=== PATIENT | female | born 1950 | race Caucasian/White ===

== ENCOUNTER → 2018-10-03 | Outpatient (CLI) | payer MEDICARE, OTHER ==
[2018-10-03 12:59] LABS: ABSOLUTE EOSINOPHILS # (AUTO) 0.1 10^3/uL (0.0-0.6); ABSOLUTE LYMPHOCYTES (AUTO) 3.1 10^3/uL (0.5-4.7); ABSOLUTE MONOCYTES (AUTO) 0.2 10^3/uL (0.1-1.4); ABSOLUTE NEUT (AUTO) 3.5 10^3/uL (1.7-8.2); BASOPHILS % (AUTO) 0.1 % (0-2); MEAN CORPUSCULAR HEMOGLOBIN 30.4 pg (27.0-33.4); MEAN CORPUSCULAR HGB CONC 34.1 g/dL (32.0-36.0); MEAN CORPUSCULAR VOLUME 89 fl (80-97); MONOCYTES % (AUTO) 3.3 % (3-13); PLATELET COUNT 230 10^3/uL (150-450); RED CELL DISTRIBUTION WIDTH 14.1 % (11.5-14.0); SEGMENTED NEUTROPHILS % (AUTO) 50.6 % (42-78); TOTAL CELLS COUNTED % (AUTO) 100 %; WHITE BLOOD COUNT 6.9 10^3/uL (4.0-10.5)
[2018-10-03 13:05] LABS: ALANINE AMINOTRANSFERASE 31 U/L (9-52); ALBUMIN 4.6 g/dL (3.5-5.0); ALKALINE PHOSPHATASE 60 U/L (38-126); ANION GAP 6 (5-19); ASPARTATE AMINO TRANSFERASE 20 U/L (14-36); BILIRUBIN,DIRECT 0.2 mg/dL (0.0-0.4); BILIRUBIN,TOTAL 0.4 mg/dL (0.2-1.3); BLOOD UREA NITROGEN 14 mg/dL (7-20); CALCIUM 9.7 mg/dL (8.4-10.2); CARBON DIOXIDE 27 mmol/L (22-30); CHLORIDE 108 mmol/L (98-107); GLUCOSE 89 mg/dL (75-110); POTASSIUM 4.5 mmol/L (3.6-5.0); TOTAL PROTEIN 6.5 g/dL (6.3-8.2)
[2018-10-03 13:22] LABS: FREE T3 3.08 pg/mL (2.77-5.27); FREE T4 (FREE THYROXINE) 1.27 ng/dL (0.78-2.19)
[2018-10-03 13:35] LABS: THYROID STIMULATING HORMONE 0.12 uIU/mL (0.47-4.68)
[2018-10-06 10:56] LABS: CHOLESTEROL 177.04 mg/dL (0-200); TRIGLYCERIDES 152 mg/dL (<150)
[2018-10-06 11:11] LABS: DIRECT LDL 76 mg/dL (<100)
[2018-10-06 11:16] LABS: VLDL CHOLESTEROL 30.4 mg/dL (10-31)
== END ==
LOC: OD 11:38
PROVIDERS: ATTEND Family Medicine
DX: E03.9 Hypothyroidism, unspecified (principal); R73.01 Impaired fasting glucose; Z79.899 Other long term (current) drug therapy; E55.9 Vitamin D deficiency, unspecified; E53.9 Vitamin B deficiency, unspecified; Z13.220 Encounter for screening for lipoid disorders; Z78.0 Asymptomatic menopausal state
CPT/HCPCS: 36415; 80053; 80061; 82306; 82607; 82670; 83001; 83002; 83036; 84439; 84443; 84481; 85025

== ENCOUNTER 2018-10-24 13:20 | Day surgery (SDC) | payer MEDICARE, OTHER ==
[~2018-10-24 13:20] MED LIST: BACITRACIN INJ 50,000 UNIT VIAL ONE; LIDOCAINE 1% INJ-PF (10 MG/ML) 30 ML SDV ONE
[2018-10-24] MEDS ORDERED: PROPOFOL INJ 200 MG/20 ML VIAL IV ONE (13:48)
[2018-10-24] MEDS ORDERED: ACETAMINOPHEN 0 MG/0 ML RTUPB IV ONE (13:48)
[2018-10-24] MEDS ORDERED: MIDAZOLAM 2 MG/2 ML INJ ONE (13:48)
[2018-10-24] MEDS ORDERED: FENTANYL CITRATE INJ/PF 100 MCG/2 ML AMPUL ONE (13:48)
[2018-10-24] MEDS ORDERED: ONDANSETRON HCL INJ/PF 4 MG/2 ML SDV ONE (13:48)
[2018-10-24] MEDS ORDERED: CLINDAMYCIN PHOSPHATE INJ 300 MG/2 ML SDV ONE (14:42)
[2018-10-24 14:50] LABS: APPEARANCE,URINE CLEAR; BILIRUBIN,URINE NEGATIVE (NEGATIVE); COLOR,URINE YELLOW; GLUCOSE, URINE NEGATIVE (NEGATIVE); KETONES,URINE NEGATIVE (NEGATIVE); LEUKOCYTE ESTERASE,URINE TRACE (NEGATIVE); NITRITE,URINE NEGATIVE (NEGATIVE); PROTEIN,URINE NEGATIVE (NEGATIVE); URINE SPECIFIC GRAVITY 1.019; UROBILINOGEN,URINE NEGATIVE mg/dL (<2.0)
[2018-10-24] MEDS ORDERED: OXYCODONE-ACETAMINOPHEN 5-325 MG TABLET PO PRN ×2 (14:58)
[2018-10-24] MEDS ORDERED: FENTANYL CITRATE INJ/PF 100 MCG/2 ML AMPUL IV PRN ×3 (14:58)
[2018-10-24] MEDS ORDERED: MORPHINE SULFATE 10 MG/ML INJ IV PRN (14:58)
[2018-10-24] MEDS ORDERED: MEPERIDINE HCL/PF INJ 25 MG/1 ML DISP.SYRIN IV PRN (14:58)
[2018-10-24] MEDS ORDERED: PROMETHAZINE HCL INJ 25 MG/1 ML VIAL IV PRN ×2 (14:58)
[2018-10-24] MEDS ORDERED: DIPHENHYDRAMINE HCL 50 MG/ML VIAL IV PRN (14:58)
[2018-10-24] MEDS ORDERED: ONDANSETRON HCL INJ/PF 4 MG/2 ML SDV IV PRN ×2 (14:58→15:10)
[2018-10-24] MEDS ORDERED: HYDROMORPHONE HCL INJ/PF 2 MG/ML AMPULE IV PRN (15:10)
--- NOTE | 2018-10-24 15:12 | Discharge Summary ---
Discharge Summary (SDC) - Discharge Final Diagnosis: Left hand abscess Date of Surgery: 10/24/18 Discharge Date: 10/24/18 Condition: Good Treatment or Instructions: Schedule Follow Up w/ Dr. Kendall Duque @ [facility] for [facility] to be seen in 7 days or as scheduled [place]: [place]: [place]: Begin daily dressing changes postop day #2 keep incision covered and dry. Remove drain on postop day #2 then begin wet-to-dry dressings. Ice and elevate May begin finger range of motion attempting to make full fist. Stool softener of choice when on pain medication. USE OF BDWP-[id number]-VZNPEKO IBUPROFEN: Ibuprofen (Advil, Nuprin, Medipren, Motrin IB) is a medication for fever and pain control. In addition, it has anti- inflammatory effects which may be beneficial, especially in the treatment of injuries. It's best to take ibuprofen with food. Persons with ulcer disease or allergy to aspirin should notify their physician of this before taking ibuprofen. Ibuprofen can be given every four to six hours, for a total of four doses daily. Age Pain or fever dose Antiinflammatory dose 6-8 yr 200 mg (1 tab) 200 mg (1 tab) 9-11 yr 200 mg (1 tab) 200-400 mg (1-2 tab) 11-14 yr 200-400 mg (1-2 tab) 400 mg (2 tab) 15-adult 400 mg (2 tab) 600 mg (3 tab) ORAL NARCOTIC MEDICATION: You have been given a prescription for pain control. This medication is a narcotic. It's best taken with food, as nausea can result if taken on an empty stomach. Don't operate machinery or drive within six hours of taking this medication. Do not combine this medicine with alcohol, or with any medication which can cause sedation (such as cold tablets or sleeping pills) unless you get permission from the physician. Narcotics tend to cause constipation. If possible, drink plenty of fluids and eat a diet high in fiber and fruits. Please be aware that prescription narcotics also have the potential for abuse. People become addicted to these medications because of the general sense of wellbeing that they induce. This feeling along with a significant reduction in tension, anxiety, and aggression provides a stimulating seductive quality to these drugs. Once your pain is under control, we encourage you to discard your unused narcotics. Prescriptions: Clindamycin HCl [Cleocin 300 mg Capsule] 600 mg PO Q6 #168 cap Referrals: ARNEL VOGT MD [Primary Care Provider] - Discharge Diet: As Tolerated Respiratory Treatments at Home: Deep Breathing/Coughing Discharge Activity: No Lifting Over 10 Pounds, No Lifting/Push/Pulling Report the Following to Your Physician Immediately: Unusual Bleeding, Redness, Swelling, Warmth, Increased Soreness
--- NOTE | 2018-10-24 15:15 | Operative Report ---
Operative Report DATE OF SURGERY: 10/24/18 PREOPERATIVE DIAGNOSIS: Left hand abscess, retained foreign body POSTOPERATIVE DIAGNOSIS: Same OPERATION: Excisional debridement skin, muscle and tendon with removal of foreign body left hand abscess. SURGEON: ANJUM SALTER ANESTHESIA: LMAC COMPLICATIONS: None ESTIMATED BLOOD LOSS: Minimal PROCEDURE: Indication for above procedure: 68-year-old female who sustained a fall from a horse onto her left hand. Patient was seen at the [facility] where x-rays the wound was apparently irrigated and loosely closed. Patient was later started on antibiotics per her primary care physician given the noted contamination redness of the hand. Pleural upon follow-up with me patient had worsening redness with drainage and thus I decided decision was made to proceed with operative intervention. Procedure In Detail: Patient was seen and evaluated in the preoperative holding area. The LEFT upper extremity was initialized and marked. Patient received Clinda IV for bacterial prophylaxis after cultures obtained. Patient was taken back to the operative room where transferred operative table. Patient was then placed under MAC anesthesia. Once adequately anesthetized, a nonsterile tourniquet was placed on the upper extremity. A surgical team debriefing was performed ensuring all instrumentation was available, the surgical procedure was discussed with possible concerns reviewed. Skin was prepped with alcohol and 10cc of 1% lidocaine without epinephrine was injected locally. The upper extremity was prepped with ChloraPrep and draped in a sterile fashion. A timeout was done identifying correct patient, procedure and extremity everyone in attendance agree with this and verbalized no concerns.The extremity was then elevated the tourniquet was inflated to 250 mmHg. Cultures were obtained from the wound including nonviable tissue. Necrotic skin, underlying adipose and portions of the muscle were excised and sent for culture as well. There was purulence noted along the thenar eminence dorsally and volarly. No deep tracking within the CMC joint was appreciated or bony involvement. There was contusion of the superficial radial nerve but no evidence of discontinuity. The wound was copiously irrigated with normal saline and abscess decompressed. There was evidence of residual foreign body and gravel along the wound which was also excised. Did not appreciate any further foreign body upon inspection. A total of 1 L of normal saline was utilized for irrigation. A Orlin drain was then placed. Any peripheral bleeding controlled with bipolar cautery. There was approximately 1 cm x 4 cm skin defect but given patient's pliable skin it was able to be reapproximated over the [place] drain. Wound was then dressed with Xeroform 4 x 4's patient was placed in a soft dressing. Tourniquet was deflated. Patient had good peripheral perfusion. Sponge counts, instrument counts, needle counts were correct. Patient was then awoken from anesthesia. Transferred from the operating room table to the operating room stretcher. There was no intraoperative complications patient tolerated procedure well stable to PACU. Postoperative plan: Patient will follow-up in 1 week for wound check. She will remove the [place] drain on postop day #2. We will start the patient on IV clindamycin given the contamination of the wound and change as per culture sensitivities.
[2018-10-24 17:28] VITALS: BP 125/82
--- NOTE | 2018-10-24 21:20 | EKG REPORT ---
SEVERITY:- NORMAL ECG - SINUS RHYTHM : Confirmed by: Lynnette Gannon MD 24-Oct-2018 21:19:46
== END 2018-10-24 16:50 | disposition home or self-care (01) ==
LOC: OROUT 13:20
PROVIDERS: ATTEND Orthopaedic Surgery
DX: L02.512 Cutaneous abscess of left hand (principal); B96.89 Other specified bacterial agents as the cause of diseases classified elsewhere; M25.532 Pain in left wrist; E07.9 Disorder of thyroid, unspecified; Z88.5 Allergy status to narcotic agent; Z79.899 Other long term (current) drug therapy; Z79.1 Long term (current) use of non-steroidal anti-inflammatories (NSAID); Z87.891 Personal history of nicotine dependence
CPT/HCPCS: 87070; 87205; 87206; 87116; 87101; 87075; 87077; 81001; 87186; 87015; 93005; 93010; 11043; J2250; J3490 ×2; J3010; J2405; J2704; 1810; J0131

== ENCOUNTER 2020-06-04 16:38 | Emergency (ER) | payer MEDICARE, OTHER ==
--- NOTE | 2020-06-04 16:58 | ER Document Report ---
HPI - HPI Time Seen by Provider: 06/04/20 16:51 Notes: CHIEF COMPLAINT: Right wrist and left rib injury HPI: 69-year-old female presenting for evaluation of left rib and right wrist injury. Patient was working with a horse that got spooked and bolted. States she does not know if the horse knocked her down or something else struck her and knocked her down. She landed on her backside did not hit her head. Complains of pain and bruising at the base of the right thumb and wrist complains of pain to the left ribs with deep breathing or movement. Denies abdominal pain headache neck pain back pain other extremity injuries ROS: See HPI - all other systems were reviewed and are otherwise negative Constitutional: no fever Eyes: no drainage, no blurred vision ENT: no runny nose, no sore throat Cardiovascular: Positive chest wall pain Resp: no SOB, no cough GI: no vomiting, no diarrhea, no abdominal pain : no dysuria Integumentary: no rash Allergy: no hives Musculoskeletal: Positive extremity pain or swelling Neurological: no numbness/tingling, no weakness MEDICATIONS: I agree with the patient medications as charted by the RN. ALLERGIES: I agree with the allergies as charted by the RN. PAST MEDICAL HISTORY/PAST SURGICAL HISTORY: Reviewed and agree as charted by RN. SOCIAL HISTORY: Reviewed and agree as charted by RN. FAMILY HISTORY: No significant familial comorbid conditions directly related to patient complaint EXAM: Reviewed vital signs as charted by RN. CONSTITUTIONAL: Alert and oriented and responds appropriately to questions. Well-appearing; well-nourished HEAD: Normocephalic; atraumatic EYES: PERRL; Conjunctivae clear, sclerae non-icteric ENT: normal nose; no rhinorrhea; moist mucous membranes; pharynx without lesions noted, no uvula edema or deviation, no tonsillar hypertrophy, phonation normal NECK: Supple without meningismus; non-tender; no cervical lymphadenopathy, no masses CARD: RRR; no murmurs, no clicks, no rubs, no gallops; symmetric distal pulses RESP: Normal chest excursion without splinting or tachypnea; breath sounds clear and equal bilaterally; no wheezes, no rhonchi, no rales, pulse oximetry 97% on room air not hypoxic. There is pain on palpation of the lateral lower anterior left ribs without crepitus or visible bruising ABD/GI: Normal bowel sounds; non-distended; soft, non-tender, no rebound, no guarding; no palpable organomegaly or masses. BACK: The back appears normal and is non-tender to palpation, there is no CVA tenderness EXT: Normal ROM in all joints; bruising is noted to the base of the right thumb onto the volar right wrist with mild tenderness on palpation SKIN: Normal color for age and race; warm; dry; good turgor; no acute lesions noted NEURO: Moves all extremities equally; Motor and sensory function intact PSYCH: The patient's mood and manner are appropriate. Grooming and personal hygiene are appropriate. MDM: 69-year-old female knocked down by a horse injury to the left ribs and right wrist will obtain imaging for fracture Past Medical History - Social History Smoking Status: Unknown if Ever Smoked Family History: Reviewed & Not Pertinent - Past Medical History Cardiac Medical History: Denies: Hx Coronary Artery Disease, Hx Heart Attack, Hx Hypertension Pulmonary Medical History: Denies: Hx Asthma - OCCASSIONAL BRONCHOSPASM, Hx Bronchitis, Hx COPD, Hx Pneumonia Neurological Medical History: Denies: Hx Cerebrovascular Accident, Hx Seizures Musculoskeletal Medical History: Denies Hx Arthritis - Immunizations Hx Diphtheria, Pertussis, Tetanus Vaccination: No Vertical Provider Document - INFECTION CONTROL TRAVEL OUTSIDE OF THE [place] IN LAST 30 DAYS: No Course - Re-evaluation Re-evalutation: 06/04/20 18:03 Imaging studies did not show evidence of fracture will discharge to follow-up with PCP 06/04/20 18:07 We will have nursing recheck heart rate and notify me if still abnormal prior to discharge patient sitting in the room I discussed her evaluation with her she is in no distress - Vital Signs Vital signs: Temp Pulse Resp BP Pulse Ox 98.1 F 120 H 20 145/84 H 95 06/04/20 16:46 06/04/20 16:46 06/04/20 16:46 06/04/20 16:46 06/04/20 16:46 Discharge - Discharge Clinical Impression: Fall Qualifiers: Encounter type: initial encounter Qualified Code(s): W19.XXXA - Unspecified fall, initial encounter Chest wall contusion Qualifiers: Encounter type: initial encounter Laterality: left Qualified Code(s): S20.212A - Contusion of left front wall of thorax, initial encounter Contusion of wrist, right Qualifiers: Encounter type: initial encounter Qualified Code(s): S60.211A - Contusion of right wrist, initial encounter Condition: Stable Disposition: HOME, SELF-CARE Instructions: Chest Wall Pain ([facility]), Contusion ([facility]) Additional Instructions: Ice or cool compresses to the wrist to help with bruising and pain. Warm compresses to the chest wall to help with pain. Take Motrin or Tylenol for discomfort. Follow-up with your primary care provider for reevaluation of symptoms call for appointment. Imaging studies did not reveal evidence of fracture or broken bones today Referrals: AGNIESZKA SHERIFF MD [ACTIVE STAFF] - Follow up as needed
--- NOTE | 2020-06-04 17:27 | RADIOLOGY REPORT (SQ) ---
EXAM DESCRIPTION: WRIST RIGHT 3 VIEWS IMAGES COMPLETED DATE/TIME: 06/04/2020 5:18 pm REASON FOR STUDY: fall COMPARISON: None. EXAM PARAMETERS: NUMBER OF VIEWS: Three views. TECHNIQUE: AP, lateral and oblique radiographic images acquired of the right wrist. LIMITATIONS: None. FINDINGS: MINERALIZATION: Normal. BONES: No acute fracture or dislocation. No worrisome bone lesions. JOINTS: No effusion. SOFT TISSUES: No significant soft tissue swelling. No radiopaque foreign body. OTHER: No other significant finding. IMPRESSION: NO FRACTURE. TECHNICAL DOCUMENTATION: JOB ID: [id number] [place]-72 2010 [employer]- All Rights Reserved Reading location - IP/workstation name: [employer]
--- NOTE | 2020-06-04 17:35 | RADIOLOGY REPORT (SQ) ---
EXAM DESCRIPTION: RIBS LEFT W/PA CHEST IMAGES COMPLETED DATE/TIME: 06/04/2020 5:18 pm REASON FOR STUDY: fall lateral rib pain COMPARISON: None. TECHNIQUE: Frontal view of the chest and additional views of the left ribs acquired. NUMBER OF VIEWS: Three view. LIMITATIONS: None. FINDINGS: FRONTAL CXR: No pneumothorax. No pleural effusion. No consolidation. Calcified right hi lar lymph nodes. RIBS: No displaced rib fractures. No lytic or blastic bony lesions. OTHER: No other significant finding. IMPRESSION: NO PNEUMOTHORAX. NO DISPLACED RIB FRACTURES. COMMENT: SITE OF TRAUMA/COMPLAINT MARKED/STAMP COMPLETED: NO. TECHNICAL DOCUMENTATION: JOB ID: [id number] [place]-72 2010 [employer]- All Rights Reserved Reading location - IP/workstation name: [employer]
[2020-06-04 18:17] VITALS: BP 134/82
== END 2020-06-04 18:16 | disposition home or self-care (01) ==
LOC: ER 16:38
DX: S60.211A Contusion of right wrist, initial encounter (principal); S60.011A Contusion of right thumb without damage to nail, initial encounter; S20.212A Contusion of left front wall of thorax, initial encounter; W55.12XA Struck by horse, initial encounter; W19.XXXA Unspecified fall, initial encounter; Y93.89 Activity, other specified
CPT/HCPCS: 99284

== ENCOUNTER 2020-08-24 11:17 | Observation (INO) | payer MEDICARE, OTHER ==
[2020-08-24 11:55] LABS: ABSOLUTE LYMPHOCYTES (AUTO) 1.5 10^3/uL (0.5-4.7); ABSOLUTE MONOCYTES (AUTO) 0.5 10^3/uL (0.1-1.4); ABSOLUTE NEUT (AUTO) 4.1 10^3/uL (1.7-8.2); BASOPHILS % (AUTO) 0.2 % (0-2); HEMATOCRIT 43.4 % (36.0-47.0); HEMOGLOBIN 14.7 g/dL (12.0-15.5); LYMPHOCYTES % (AUTO) 24.1 % (13-45); MEAN CORPUSCULAR HEMOGLOBIN 28.9 pg (27.0-33.4); MEAN CORPUSCULAR HGB CONC 33.9 g/dL (32.0-36.0); MEAN CORPUSCULAR VOLUME 86 fl (80-97); MONOCYTES % (AUTO) 7.8 % (3-13); PLATELET COUNT 202 10^3/uL (150-450); RED BLOOD COUNT 5.07 10^6/uL (3.72-5.28); RED CELL DISTRIBUTION WIDTH 13.2 % (11.5-14.0); SEGMENTED NEUTROPHILS % (AUTO) 67.9 % (42-78); TOTAL CELLS COUNTED % (AUTO) 100 %; WHITE BLOOD COUNT 6.1 10^3/uL (4.0-10.5)
[2020-08-24 12:34] LABS: ALBUMIN 4.3 g/dL (3.5-5.0); ALKALINE PHOSPHATASE 80 U/L (38-126); ANION GAP 16 (5-19); ASPARTATE AMINO TRANSFERASE 43 U/L (14-36); BILIRUBIN,DIRECT 0.3 mg/dL (0.0-0.4); BILIRUBIN,TOTAL 0.7 mg/dL (0.2-1.3); BLOOD UREA NITROGEN 14 mg/dL (7-20); CALCIUM 9.3 mg/dL (8.4-10.2); CARBON DIOXIDE 21 mmol/L (22-30); CHLORIDE 101 mmol/L (98-107); GLUCOSE 82 mg/dL (75-110); POTASSIUM 4.1 mmol/L (3.6-5.0); TOTAL PROTEIN 7.3 g/dL (6.3-8.2)
[2020-08-24] MEDS ORDERED: NORMAL SALINE 1000 ML 1,000 ML IV ONE ×3 (13:03→15:17)
[2020-08-24] MEDS ORDERED: ONDANSETRON HCL INJ/PF 4 MG/2 ML SDV IV ONE ×2 (13:03→15:01)
[2020-08-24 13:32] LABS: APPEARANCE,URINE SLIGHTLY-CLOUDY; BILIRUBIN,URINE NEGATIVE (NEGATIVE); COLOR,URINE YELLOW; GLUCOSE, URINE NEGATIVE (NEGATIVE); KETONES,URINE 80 mg/dL (NEGATIVE); LEUKOCYTE ESTERASE,URINE NEGATIVE (NEGATIVE); NITRITE,URINE NEGATIVE (NEGATIVE); PROTEIN,URINE 100 mg/dL (NEGATIVE); URINE SPECIFIC GRAVITY 1.031; UROBILINOGEN,URINE NEGATIVE mg/dL (<2.0)
--- NOTE | 2020-08-24 13:59 | RADIOLOGY REPORT (SQ) ---
EXAM DESCRIPTION: CHEST SINGLE VIEW IMAGES COMPLETED DATE/TIME: 08/24/2020 1:10 pm REASON FOR STUDY: cough, covid + COMPARISON: None. EXAM PARAMETERS: NUMBER OF VIEWS: One view. TECHNIQUE: Single frontal radiographic view of the chest acquired. RADIATION DOSE: NA LIMITATIONS: None. FINDINGS: LUNGS AND PLEURA: Minimal patchy parenchymal opacities at the bases. MEDIASTINUM AND HILAR STRUCTURES: No masses. Contour normal. HEART AND VASCULAR STRUCTURES: Heart normal in size. Normal vasculature. BONES: No acute findings. HARDWARE: None in the chest. OTHER: No other significant finding. IMPRESSION: Minimal patchy parenchymal opacities at the bases. TECHNICAL DOCUMENTATION: JOB ID: [id number] 2010 [employer]- All Rights Reserved Reading location - IP/workstation name: [email or web address]
--- NOTE | 2020-08-24 15:57 | ER Document Report ---
ED General - General Chief Complaint: Nausea/Vomiting/Diarrhea Stated Complaint: COUGH,VOMITING Time Seen by Provider: 08/24/20 12:12 Primary Care Provider: ARNEL VOGT MD [Primary Care Provider] - Follow up as needed Mode of Arrival: Ambulatory Information source: Patient TRAVEL OUTSIDE OF THE [place] IN LAST 30 DAYS: No - HPI Notes: Patient presents complaining of severe nausea and vomiting. She states she had a Covid test that was +3 days ago. She has had 4 to 5 days of severe nausea and vomiting. She denies any significant pain. She has had a dry cough but no shortness of breath. She states her roommate is also positive for Covid. She denies any fevers. No significant diarrhea. She states she is unable to tolera te any type of liquids or food at home. - Related Data Allergies/Adverse Reactions: tamsulosin HCl [From Flomax] Allergy (Unknown, Verified 08/24/20 11:38) venlafaxine HCl [From Effexor] Allergy (Unknown, Verified 08/24/20 11:38) ciprofloxacin [From Cipro] Allergy (Verified 08/24/20 11:38) codeine [Codeine] Allergy (Verified 08/24/20 11:38) Hives meperidine [From Demerol] Allergy (Verified 08/24/20 11:38) sulfamethoxazole [From Bactrim] Allergy (Verified 08/24/20 11:38) trimethoprim [From Bactrim] Allergy (Verified 08/24/20 11:38) Past Medical History - General Information source: Patient - Social History Smoking Status: Former Smoker Frequency of alcohol use: None Drug Abuse: None Family History: Reviewed & Not Pertinent Patient has homicidal ideation: No - Past Medical History Cardiac Medical History: Denies: Hx Coronary Artery Disease, Hx Heart Attack, Hx Hypertension Pulmonary Medical History: Denies: Hx Asthma - OCCASSIONAL BRONCHOSPASM, Hx Bronchitis, Hx COPD, Hx Pneumonia Neurological Medical History: Denies: Hx Cerebrovascular Accident, Hx Seizures Musculoskeletal Medical History: Denies Hx Arthritis Past Surgical History: Reports: Hx Breast Surgery - reduction, Hx Orthopedic Surgery - Ltkr - Immunizations Hx Diphtheria, Pertussis, Tetanus Vaccination: No Review of Systems - Review of Systems Constitutional: Malaise, Weakness Cardiovascular: denies: Chest pain, Palpitations Respiratory: Cough. denies: Short of breath -: Yes All other systems reviewed and negative Physical Exam - Vital signs Vitals: Temp Pulse Resp BP Pulse Ox 98.2 F 113 H 22 H 120/75 96 08/24/20 11:26 08/24/20 11:26 08/24/20 11:26 08/24/20 11:26 08/24/20 11:26 Interpretation: Tachycardic - General General appearance: Alert - HEENT Head: Normocephalic, Atraumatic Eyes: Normal - Respiratory Respiratory status: No respiratory distress Breath sounds: Normal - Cardiovascular Rhythm: Tachycardia Notes: No JVD - Abdominal Inspection: Normal Distension: No distension - Back Back: Normal, Nontender - Extremities General upper extremity: Normal inspection, Normal color, Normal ROM General lower extremity: Normal inspection, Normal color, Normal ROM, Normal weight bearing. No: Mulugeta's sign - Neurological Neuro grossly intact: Yes Cognition: Normal Orientation: AAOx4 Laisha Coma Scale Eye Opening: Spontaneous [place] Coma Scale Verbal: Oriented Laisha Coma Scale Motor: Obeys Commands [place] Coma Scale Total: 15 Speech: Normal Motor strength normal: LUE, RUE, LLE, RLE Sensory: Normal - Psychological Associated symptoms: Normal affect, Normal mood - Skin Skin Temperature: Warm Skin Moisture: Dry Skin Color: Normal Course - Re-evaluation Re-evalutation: 08/24/20 15:52 Patient is a known Covid positive patient. She presents with intractable nausea and vomiting. She is dehydrated. Here despite multiple doses of antiemetics and multiple liters of fluid she is still symptomatic with significant nausea and vomiting. I did try p.o. challenge but the patient was unable to tolerate any type of p.o. She has had a persistent dry cough here as well. It seems most prudent at this time given the patient's age and intractable nausea and vomiting that she will need admission for IV hydration. - Vital Signs Vital signs: Temp Pulse Resp BP Pulse Ox 97.8 F 91 20 124/79 97 08/24/20 15:49 08/24/20 15:49 08/24/20 15:49 08/24/20 15:49 08/24/20 15:49 - Laboratory Results Result Diagrams: 08/24/20 11:43 08/24/20 11:43 Laboratory Results Interpreted: 12/16/20 12/16/20 11:43 12:40 Carbon Dioxide 21 L AST 43 H Urine Protein 100 H Urine Ketones 80 H Critical Laboratory Results Reviewed: No Critical Results - Radiology Results Critical Radiology Results Reviewed: No Critical Results Discharge - Discharge Clinical Impression: COVID-19 virus infection Vomiting Qualifiers: Vomiting type: unspecified Vomiting Intractability: intractable Nausea presence: with nausea Qualified Code(s): R11.2 - Nausea with vomiting, unspecified Condition: Serious Disposition: ADMITTED OBSERVATION Admitting Provider: Nikolas (Hospitalist) - [place] to admit Unit Admitted: Medical Floor Referrals: ARNEL VOGT MD [Primary Care Provider] - Follow up as needed
[2020-08-24] MEDS ORDERED: ALBUTEROL SULFATE 0.083% NEB 2.5 MG/3 ML AMPUL NEB ONE (17:38)
[2020-08-24] MEDS ORDERED: DIPHENHYDRAMINE HCL 50 MG/ML VIAL IV ONE (17:38)
[2020-08-24] MEDS ORDERED: RINGERS SOLUTION,LACTATED 1,000 ML IV PRN (17:39)
[2020-08-24] MEDS ORDERED: ACETAMINOPHEN 325 MG TABLET PO PRN (17:39)
[2020-08-24] MEDS ORDERED: BENZONATATE 100 MG CAPSULE PO PRN (17:51)
[2020-08-24] MEDS ORDERED: ALBUTEROL SULFATE 0.083% NEB 2.5 MG/3 ML AMPUL NEB PRN (17:51)
[2020-08-24] MEDS ORDERED: ASCORBIC ACID 500 MG TABLET PO SCH (18:00)
--- NOTE | 2020-08-24 18:09 | PDOC H&P ---
History of Present Illness Admission Date/PCP: 08/24/20 16:10 ARNEL VOGT MD Patient complains of: cough, vomiting History of Present Illness: JESSIE WHITE is a 70 year old female with a past medical history significant for asthma and hypothyroidism who tested Covid positive 08/21/2020 after 2 to 3 days of generalized malaise, fatigue, and nonproductive cough. She developed frequent episodes of vomiting without nausea 3 days ago which has progressively worsened. Has now developed diarrhea. She is no longer tolerating p.o. fluids. Evaluation in the emergency department was relatively benign other than mild tachycardia (HR 113) and urinalysis demonstrating proteinuria and high ketones. Chest x-ray did show faint bibasilar opacities. She was provided 3 L normal saline boluses and Zofran x2 without relief of her vomiting. She was subsequently referred to the hospitalist service for further evaluation and management of her above stated complaints and findings. Past Medical History Cardiac Medical History: Denies: Coronary Artery Disease, Myocardial Infarction, Hypertension Pulmonary Medical History: Reports: Asthma Denies: Bronchitis, Chronic Obstructive Pulmonary Disease (COPD), Pneumonia Neurological Medical History: Denies: Ischemic CVA, Seizures Endocrine Medical History: Reports: Hypothyroidism Denies: Diabetes Mellitus Type 2 Renal/ Medical History: Reports: None Musculoskeltal Medical History: Denies: Arthritis Psychiatric Medical History: Reports: None Traumatic Medical History: Reports: None Hematology: Denies: Anemia Past Surgical History Past Surgical History: Reports: Orthopedic Surgery - Ltkr, Other - Breast reduction Social History Information Source: Patient Lives with: Family Smoking Status: Former Smoker Electronic Cigarette use?: No Frequency of Alcohol Use: Rare Hx Recreational Drug Use: No Drugs: None Hx Prescription Drug Abuse: No - Advance Directive Resuscitation Status: Full Code Surrogate healthcare decision maker:: The patient's close friend, Bailey Jaramillo. Family History Family History: Reviewed & Not Pertinent Parental Family History Reviewed: Yes Children Family History Reviewed: Yes Sibling(s) Family History Reviewed.: Yes Medication/Allergy Home Medications: Albuterol Sulfate [Ventolin HFA MDI 18 GM] 2 puff IH Q4H PRN 01/01/13 Alprazolam [Xanax 1 mg Tablet] 2 mg PO TID 01/01/13 Amitriptyline HCl [Elavil 10 mg Tablet] 10 mg PO QHS 01/01/13 Amphet Asp/Amphet/D-Amphet [Adderall 5 mg Tablet] 0.5 tab PO DAILY #0 01/01/13 Ca Cmb No.1/Vit D3/B-6/FA/B12 [Vitamin D3 1,000 Unit Tablet] 1 each PO BID 01/01/13 Calcium Carbonate/Vitamin D3 [Calcium 600-Vit D3 200 Tablet] 2,500 mg PO DAILY 01/01/13 Desvenlafaxine Succinate [Pristiq] 50 mg PO DAILY 01/01/13 Diclofenac Sodium [Voltaren] 4 gm TOP QIDP PRN 01/01/13 Levothyroxine Sodium [Synthroid 0.025 mg Tablet] 0.025 mg PO DAILY #0 tablet 01/01/13 Magnesium Oxide 600 mg PO QHS 01/01/13 Promethazine HCl 25 mg PO QIDP PRN 01/01/13 Raloxifene HCl [Evista 60 mg Tablet] 60 mg PO QAM 01/01/13 Ramelteon [Rozerem] 8 mg PO QHS 01/01/13 Sumatriptan Succinate [Imitrex 50 mg Tablet] 50 mg PO PRN 01/01/13 Thyroid,Pork [[place] Thyroid] 30 mg PO DAILY #0 01/01/13 Tramadol HCl [Rybix Odt] 50 mg PO QIDP PRN 01/01/13 Zaleplon [Sonata] 20 mg PO QHS PRN 01/01/13 Clindamycin HCl [Cleocin 300 mg Capsule] 600 mg PO Q6 #168 cap 10/24/18 Allergies/Adverse Reactions: tamsulosin HCl [From Flomax] Allergy (Unknown, Verified 08/24/20 11:38) venlafaxine HCl [From Effexor] Allergy (Unknown, Verified 08/24/20 11:38) ciprofloxacin [From Cipro] Allergy (Verified 08/24/20 11:38) codeine [Codeine] Allergy (Verified 08/24/20 11:38) Hives meperidine [From Demerol] Allergy (Verified 08/24/20 11:38) sulfamethoxazole [From Bactrim] Allergy (Verified 08/24/20 11:38) trimethoprim [From Bactrim] Allergy (Verified 08/24/20 11:38) Review of Systems Constitutional: PRESENT: fatigue, headache(s). ABSENT: chills, fever(s), weight gain, weight loss Eyes: ABSENT: visual disturbances Ears: ABSENT: hearing changes Cardiovascular: ABSENT: chest pain, dyspnea on exertion, edema, orthropnea, palpitations Respiratory: PRESENT: cough. ABSENT: hemoptysis Gastrointestinal: PRESENT: diarrhea, vomiting. ABSENT: abdominal pain, constipation, hematemesis, hematochezia, nausea Genitourinary: ABSENT: dysuria, hematuria Musculoskeletal: ABSENT: joint swelling Integumentary: ABSENT: rash, wounds Neurological: ABSENT: abnormal gait, abnormal speech, confusion, dizziness, focal weakness, syncope Psychiatric: ABSENT: anxiety, depression, homidical ideation, suicidal ideation Endocrine: ABSENT: cold intolerance, heat intolerance, polydipsia, polyuria Hematologic/Lymphatic: ABSENT: easy bleeding, easy bruising Physical Exam Vital Signs: Temp Pulse Resp BP Pulse Ox 97.8 F 91 20 124/79 97 08/24/20 15:49 08/24/20 15:49 08/24/20 15:49 08/24/20 15:49 08/24/20 15:49 Intake & Output 08/23/20 08/24/20 08/25/20 06:59 06:59 06:59 Intake Total 3000 Balance 3000 Weight 65.6 kg General appearance: PRESENT: no acute distress, cooperative, well-developed, well-nourished, other - Acutely ill-appearing Head exam: PRESENT: atraumatic, normocephalic Eye exam: PRESENT: conjunctiva pink, EOMI, PERRLA. ABSENT: scleral icterus Mouth exam: PRESENT: moist, tongue midline Neck exam: ABSENT: carotid bruit, JVD, lymphadenopathy, thyromegaly Respiratory exam: PRESENT: clear to auscultation luis eduardo, symmetrical, unlabored. ABSENT: rales, rhonchi, wheezes Cardiovascular exam: PRESENT: RRR. ABSENT: diastolic murmur, rubs, systolic murmur Pulses: PRESENT: normal dorsalis pedis pul Vascular exam: PRESENT: normal capillary refill GI/Abdominal exam: PRESENT: normal bowel sounds, soft. ABSENT: distended, guarding, mass, organolmegaly, rebound, tenderness Rectal exam: PRESENT: deferred Extremities exam: PRESENT: full ROM. ABSENT: calf tenderness, clubbing, pedal edema Musculoskeletal exam: PRESENT: ambulatory Neurological exam: PRESENT: alert, awake, oriented to person, oriented to place, oriented to time, oriented to situation, CN II-XII grossly intact. ABSENT: motor sensory deficit Psychiatric exam: PRESENT: appropriate affect, normal mood. ABSENT: homicidal ideation, suicidal ideation Skin exam: PRESENT: dry, intact, warm. ABSENT: cyanosis, rash Results Laboratory Results: 08/24/20 11:43 08/24/20 11:43 08/24/20 08/24/20 08/24/20 11:43 11:43 12:40 WBC 6.1 RBC 5.07 Hgb 14.7 Hct 43.4 MCV 86 MCH 28.9 MCHC 33.9 RDW 13.2 Plt Count 202 Seg Neutrophils % 67.9 Sodium 138.4 Potassium 4.1 Chloride 101 Carbon Dioxide 21 L Anion Gap 16 BUN 14 Creatinine 0.74 Est GFR ( Amer) > 60 Glucose 82 Calcium 9.3 Total Bilirubin 0.7 AST 43 H Alkaline Phosphatase 80 Total Protein 7.3 Albumin 4.3 Urine Color YELLOW Urine Appearance SLIGHTLY-CLOUDY Urine pH 5.0 Ur Specific [place] 1.031 Urine Protein 100 H Urine Glucose (UA) NEGATIVE Urine Ketones 80 H Urine Blood NEGATIVE Urine Nitrite NEGATIVE Ur Leukocyte Esterase NEGATIVE Urine WBC (Auto) 3 Urine RBC (Auto) 1 Impressions: Chest X-Ray 08/24/20 12:50 IMPRESSION: Minimal patchy parenchymal opacities at the bases. Assessment and Plan - Diagnosis (1) COVID-19 virus infection Is this a current diagnosis for this admission?: Yes Plan: Covid positive 08/21/2020 at her PCP We will check baseline inflammatory markers: d-dimer, ferritin, CRP, LDH. Provide supplemental oxygen as needed maintain saturations greater than 89%. At this time maintaining oxygen saturations on room air. As needed nebulizer treatments. No indications for steroid therapy at this time. Once patient is tolerating oral; will discuss with her potential benefits of ivermectin. Zinc, vitamin D, vitamin C, and melatonin supplementation once tolerating oral intake. Encourage pulmonary toilet. Isolation precautions. (2) Post-tussive emesis Is this a current diagnosis for this admission?: Yes Plan: The patient had a persistent cough limiting her ability to speak in full sentences and frequently ending in dry heaves/vomiting. She denies nausea not associated with a coughing episode. She denies abdominal pain. She does have a history of asthma/bronchospasms. Albuterol nebulizer treatments as needed. Tessalon Perles if tolerating oral. Trial of IV Benadryl 25 mg. Oral intake as tolerated; will allow for brat diet. Gentle IV fluids until adequate oral intake. (3) Hypothyroidism Is this a current diagnosis for this admission?: Yes Plan: Resume home dose levothyroxine once reconciled. - Time Time Spent with patient: 35 or more minutes Medications reviewed and adjusted accordingly: Yes Anticipated Discharge Disposition: Home, Self Care Anticipated Discharge Timeframe: within 24 hours
[2020-08-24] MEDS ORDERED: DIAZEPAM 2 MG TABLET PO ONE (22:00)
[2020-08-24 22:20] LABS: C-REACTIVE PROTEIN 55.7 mg/L (<10.0)
[2020-08-24] MEDS: PROMETHAZINE HCL INJ 25 MG/1 ML VIAL IV PRN (22:37)
[2020-08-25] MEDS: PROMETHAZINE HCL INJ 25 MG/1 ML VIAL IV PRN (03:35)
[2020-08-25 04:42] VITALS: BP 106/48
[2020-08-25 06:19] LABS: ANION GAP 7 (5-19); BLOOD UREA NITROGEN 9 mg/dL (7-20); CALCIUM 8.4 mg/dL (8.4-10.2); CARBON DIOXIDE 24 mmol/L (22-30); CHLORIDE 109 mmol/L (98-107); GLUCOSE 72 mg/dL (75-110)
[2020-08-25 06:35] LABS: ABSOLUTE LYMPHOCYTES (AUTO) 1.9 10^3/uL (0.5-4.7); ABSOLUTE MONOCYTES (AUTO) 0.4 10^3/uL (0.1-1.4); ABSOLUTE NEUT (AUTO) 2.8 10^3/uL (1.7-8.2); BASOPHILS % (AUTO) 0.3 % (0-2); EOSINOPHILS % (AUTO) 0.2 % (0-6); HEMATOCRIT 40.6 % (36.0-47.0); HEMOGLOBIN 13.4 g/dL (12.0-15.5); LYMPHOCYTES % (AUTO) 37.2 % (13-45); MEAN CORPUSCULAR HEMOGLOBIN 28.2 pg (27.0-33.4); MEAN CORPUSCULAR HGB CONC 33.1 g/dL (32.0-36.0); MEAN CORPUSCULAR VOLUME 85 fl (80-97); MONOCYTES % (AUTO) 8.3 % (3-13); PLATELET COUNT 174 10^3/uL (150-450); RED BLOOD COUNT 4.76 10^6/uL (3.72-5.28); RED CELL DISTRIBUTION WIDTH 13.6 % (11.5-14.0); TOTAL CELLS COUNTED % (AUTO) 100 %; WHITE BLOOD COUNT 5.2 10^3/uL (4.0-10.5)
[2020-08-25] MEDS ORDERED: CLONIDINE HCL 0.1 MG TABLET PO PRN (08:20)
[2020-08-25] MEDS ORDERED: (PENDING PHARMACY ID) (Omeprazole [Omeprazole] 40 MG Capsule.Dr) PO SCH (10:00)
[2020-08-25] MEDS ORDERED: ASPIRIN 81 MG TABLET, ENT COATED PO SCH (10:00)
[2020-08-25] MEDS ORDERED: ENOXAPARIN SODIUM INJ 40 MG/0.4 ML DISP.SYRIN SUBCUT SCH (10:00)
[2020-08-25] MEDS ORDERED: PYRIDOXINE HCL 100 MG PO SCH (10:00)
[2020-08-25] MEDS ORDERED: ZINC SULFATE 220 MG CAPSULE PO SCH (10:00)
[2020-08-25] MEDS ORDERED: LEVOTHYROXINE SODIUM 0.075 MG TABLET PO SCH (10:00)
[2020-08-25] MEDS ORDERED: (PENDING PHARMACY ID) (Ubidecarenone/Vit E Acet [Co Q-10 100 Mg Softgel] 1 EACH Capsule) PO SCH (10:00)
[2020-08-25] MEDS ORDERED: CHOLECALCIFEROL (D3) 1,000 UNIT (25 MCG) TABLET PO SCH (10:00)
--- NOTE | 2020-08-25 10:02 | Left Against Medical Advice ---
Against Medical Advice Admission Date/Time: 08/24/20 16:10 Primary Care Provider: ARNEL VOGT MD Date of Patient Emigration: 08/25/20 - Diagnosis: (1) COVID-19 virus infection Is this a current diagnosis for this admission?: Yes (2) Post-tussive emesis Is this a current diagnosis for this admission?: Yes (3) Hypothyroidism Is this a current diagnosis for this admission?: Yes - Summary: Summary: Please see Admission and Progress Notes as well. JESSIE WHITE is a 70 F, who LEFT AGAINST MEDICAL ADVICE. The Patient was admitted on 08/24/20 16:10. The patient was admitted COVID positive, maintaining oxygen saturations mid to high 90s on room air. Her primary complaints were persistent/frequent cough, posttussive emesis resulting in inability to hold down po fluids and medications, and frequent diarrhea. Laboratory evaluation was benign. She was provided IV fluids, antiemetics, IV benadryl, IV phenergan, albuterol nebs, and once tolerating po, oral valium. She continued to have cough and occasional emesis, though much improved. Per nursing, patient became high agitated early this morning; stating that she was in benzodiazipine withdrawal, and threatening to strike staff members due to having not yet been discharged. Nursing reports that as of 0800, the patient had removed her own PIV and left against medical advice.
[2020-08-25] MEDS ORDERED: MELATONIN 5 MG TABLET PO SCH (22:00)
[2020-08-25] MEDS ORDERED: DIAZEPAM 2 MG TABLET PO SCH (22:00)
== END 2020-08-25 08:25 | disposition left against medical advice (07) ==
LOC: ER 11:17 → EH 16:10 → 3W 19:27
PROVIDERS: ADMIT Internal Medicine; ATTEND Registered Nurse
DX: D64.9 Anemia, unspecified (principal); U07.1 COVID-19; R05 Cough; R11.10 Vomiting, unspecified; E03.9 Hypothyroidism, unspecified; R19.7 Diarrhea, unspecified; Z53.20 Procedure and treatment not carried out because of patient's decision for unspecified reasons; R00.0 Tachycardia, unspecified; J45.909 Unspecified asthma, uncomplicated; Z79.899 Other long term (current) drug therapy; Z87.891 Personal history of nicotine dependence
CPT/HCPCS: 96376; 99285; 96361; 96374; 36415 ×2; 82550; 82728; 83615; 85025 ×2; 86140; 80048; 80053; 81001; 85379; 71045; G0378 ×3; A9270 ×3; J1200; J2550 ×2; J3490 ×2; J2405; J7030; J7120; J7613